=== PATIENT | male | born 1985 | race Caucasian/White ===

== ENCOUNTER 2023-10-18 03:46 | Emergency (ER) | payer MEDICAID ==
[~2023-10-18] VITALS: Ht 172.7 cm; Wt 77.1 kg
[2023-10-18] MEDS ORDERED: FLUORESCEIN SODIUM OPHTH 1 EA STRIP ONE (05:08)
[2023-10-18] MEDS ORDERED: TETRAcaine 5 ML BOTTLE ONE (05:08)
[2023-10-18] MEDS: TETRAcaine 5 ML BOTTLE EACHEYE ONE (05:29)
[2023-10-18] MEDS: FLUORESCEIN SODIUM OPHTH 1 EA STRIP OP ONE (05:29)
[2023-10-18] MEDS ORDERED: TOBR5DRO48 EACHEYE (05:46)
[2023-10-18 05:51] VITALS: BP 142/84; TEMP 98; O2SAT 98
== END 2023-10-18 05:52 | disposition home or self-care (01) ==
LOC: ER 04:53
DX: H10.213 Acute toxic conjunctivitis, bilateral (principal); I10 Essential (primary) hypertension

== ENCOUNTER → 2024-01-13 | Emergency (ER) | payer MEDICAID ==
[~2024-01-13] VITALS: Ht 182.9 cm; Wt 93.0 kg
[~2024-01-13] MED LIST: DIPH25CA83 PO; FAMO20TA80 PO; FLUO15OI TP; TOBR5DRO48 EACHEYE
[2024-01-13 17:03] VITALS: BP 163/110; TEMP 98; O2SAT 98
== END | disposition home or self-care (01) ==
LOC: ER 17:10
DX: L30.9 Dermatitis, unspecified (principal); I10 Essential (primary) hypertension